=== PATIENT | female | born 1990 | race Two or more races ===

== ENCOUNTER 2020-02-24 19:46 | Emergency (ER) | payer BC ==
[~2020-02-24] VITALS: Ht 167.6 cm; Wt 60.8 kg
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
[2020-02-24] MEDS ORDERED: CYCLOBENZAPRINE 10 MG TABLET ONE (20:08)
[2020-02-24] MEDS ORDERED: KETOROLAC TROMETHAMINE INJ 60 MG/2 ML VIAL IM ONE (20:08)
[2020-02-24] MEDS: CYCLOBENZAPRINE 10 MG TABLET PO ONE (20:17)
[2020-02-24] MEDS: KETOROLAC TROMETHAMINE INJ 60 MG/2 ML VIAL IM ONE (20:17)
--- NOTE | 2020-02-24 20:18 | NUR ---
PT SIGNED WAIVER. CALLED RADIOLOGY FOR CT.
--- NOTE | 2020-02-24 20:21 | NUR ---
BROUGHT TO CT
--- NOTE | 2020-02-24 20:54 | NUR ---
AWAITING CT RESULTS.
[2020-02-24] MEDS ORDERED: DEXAMETHASONE SOD PHOSPHATE 10 MG/ML VIAL ONE (21:05)
[2020-02-24] MEDS: DEXAMETHASONE SOD PHOSPHATE 4 MG/ML VIAL IM ONE (21:11)
--- NOTE | 2020-02-24 21:12 | NUR ---
Patient discharged to home in stable condition. Written and verbal after care instructions given. Patient verbalizes understanding of instruction and RX. Pt picked up by boyfriend. Ambulated with steady gait.
[2020-02-24 21:13] VITALS: BP 119/72
== END 2020-02-24 21:14 | disposition home or self-care (01) ==
LOC: ER 19:46
DX: M51.26 Other intervertebral disc displacement, lumbar region (principal)
CPT/HCPCS: 72131; 96372 ×2; 99284; J1100; J1885

== ENCOUNTER 2021-11-02 20:27 | Inpatient (IN) | payer BC, OTHER ==
[~2021-11-02] VITALS: Ht 167.6 cm; Wt 61.2 kg
--- NOTE | 2021-11-02 20:34 | NUR ---
BIBS C/OFLU LIKE SYMPTOMS X1DAY. +BODY ACHES +FEVER +COUGH. PATIENT ALERT AND ORIENTED X3. AMBULATORY WITH NON LABORED BREATHING IN BED 06 [address]URDEN.
--- NOTE | 2021-11-02 20:35 | NUR ---
Note rosalia in EDM - 11/02/21 at 2043 by RANDY BIBEz C/BETO LIKE SYMPTOMS X1DAY. +BODY ACHES +FEVER +COUGH. PATIENT IS ALERT, ORIENTED X4. VITALS CHECKED. PLACED COMFORTABLY IN BED.
[2021-11-02] MEDS ORDERED: KETOROLAC TROMETHAMINE INJ 30 MG/ML VIAL IV ONE (21:00)
[2021-11-02] MEDS ORDERED: KETOROLAC TROMETHAMINE 15 MG/ML VIAL ONE (21:09)
--- NOTE | 2021-11-02 21:21 | NUR ---
IV CANNULA G20 INSERTED ON RIGHT AC. BLOOD DRAWN AND GIVEN TO VALVE AND REGULATOR REPAIRER
--- NOTE | 2021-11-02 21:21 | NUR ---
URINE SAMPLE ENDORSED TO TABLEAU DEVELOPER
--- NOTE | 2021-11-02 21:21 | NUR ---
COVID SWAB DONE AND SENT TO LAB
[2021-11-02 21:44] LABS: BILIRUBIN,URINE NEGATIVE (NEGATIVE); COLOR,URINE YELLOW (YELLOW); LEUKOCYTE ESTERASE ,URINE NEGATIVE (NEGATIVE); NITRITE, URINE NEGATIVE (NEGATIVE); PROTEIN,URINE NEGATIVE (NEGATIVE); UGLUCOSE NEGATIVE (NEGATIVE); UROBILINOGEN,URINE 0.2 EU/dL (0.2)
[2021-11-02 21:50] LABS: BASOPHILS % (AUTO) 0.2 % (0.0-2.0); EOSINOPHILS % (AUTO) 1.8 % (0.0-6.0); HEMATOCRIT 38 % (33-45); HEMOGLOBIN 12.7 g/dL (11.5-14.8); LYMPHOCYTES # (AUTO) 0.3 K/uL (0.8-4.8); LYMPHOCYTES % (AUTO) 2.2 % (20.0-44.0); MEAN CORPUSCULAR HGB CONC 33 g/dl (31.0-36.0); MEAN CORPUSCULAR VOLUME 90 fL (82-100); MONOCYTES # (AUTO) 0.5 K/uL (0.1-1.30); MONOCYTES % (AUTO) 3.8 % (2.0-12.0); NEUTROPHILS # (AUTO) 13.3 K/uL (1.8-8.9); PLATELET COUNT (AUTO) 214 K/uL (150-450); RED BLOOD CELL COUNT(AUTO) 4.26 MIL/uL (4.0-5.2); WHITE BLOOD COUNT (AUTO) 14.4 K/uL (4.3-11.0)
--- NOTE | 2021-11-02 21:50 | NUR ---
CXR DONE AT BEDSIDE
[2021-11-02] MEDS ORDERED: IOHEXOL-300 100 ML VIAL IV ONE (22:05)
[2021-11-02] MEDS ORDERED: IV NS 0.9% 250 ML IV ONE (22:06)
[2021-11-02] MEDS ORDERED: CT SWABBABLE VALVE TRANS SET 1 EA INFUS.SET MC ONE (22:06)
--- NOTE | 2021-11-02 22:07 | NUR ---
WHEELED TO RADIOLOGY DEPT FOR CT SCAN
[2021-11-02 22:12] LABS: ALBUMIN 3.8 g/dL (3.4-5.0); BILIRUBIN,TOTAL 0.7 mg/dL (0.2-1.0); CALCIUM, SERUM 8.8 mg/dL (8.5-10.1); CREATININE 0.7 mg/dL (0.6-1.3); TOTAL PROTEIN, SERUM 8.1 g/dL (6.4-8.2)
[2021-11-02 22:32] LABS: POTASSIUM 6.5 mmol/L (3.5-5.1)
--- NOTE | 2021-11-02 22:33 | NUR ---
POTASSIUM 6.5; MD ESCALONA AWARE
--- NOTE | 2021-11-02 22:35 | NUR ---
SPECIMEN FOR RAPID INFLUENZA SENT TO LAB
[2021-11-02] MEDS ORDERED: IV NS 0.9% 1,000 ML BAG IV ONE ×2 (23:00)
[2021-11-02] MEDS ORDERED: CALCIUM CHLORIDE 1,000 MG/10 ML DISP.SYRIN IV ONE (23:00)
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
--- NOTE | 2021-11-02 23:42 | NUR ---
RECEIVED REPORT FROM ARIA CRABTREE FOR [facility]
--- NOTE | 2021-11-02 23:42 | NUR ---
PT IS RESTING COMFORTABLY IN BED, PROVIDED HER WITH WARM BLANKET V/S STABLE. WILL CONTINUE TO MONITOR
[2021-11-02] MEDS ORDERED: CALCIUM CHLORIDE 1,000 MG/10 ML DISP.SYRIN ONE (23:55)
[2021-11-03] MEDS ORDERED: ACETAMINOPHEN 325 MG TABLET PO PRN
[2021-11-03] MEDS ORDERED: ONDANSETRON HCL/PF 4 MG/2 ML VIAL IVP PRN
[2021-11-03] MEDS ORDERED: MAGNESIUM HYDROXIDE 30 ML UDC PO PRN
[2021-11-03] MEDS ORDERED: ZOLPIDEM TARTRATE 5 MG TABLET PO PRN
[2021-11-03] MEDS ORDERED: Z GUARD REMEDY 4 OZ OINT TP PRN
[2021-11-03] MEDS ORDERED: MAG HYDROX/AL HYDROX/SIMETH 30 ML UDC PO PRN
[2021-11-03] MEDS ORDERED: ACETAMINOPHEN 325 MG TABLET ONE (00:02)
--- NOTE | 2021-11-03 00:14 | NUR ---
PT C/O BODY PAIN 4/10 P/S, PRN PAIN MEDS PROVIDED
[2021-11-03 01:46] LABS: CREATININE 0.8 mg/dL (0.6-1.3); POTASSIUM 3.6 mmol/L (3.5-5.1)
--- NOTE | 2021-11-03 01:54 | NUR ---
REPORT GIVEN TO HARPER CRABTREE FOR TAMIA
[2021-11-03] MEDS ORDERED: KETOROLAC TROMETHAMINE 15 MG/ML VIAL ONE (02:09)
--- NOTE | 2021-11-03 02:25 | NUR ---
COVID PCR DONE AND SENT TO LAB
[2021-11-03] MEDS ORDERED: KETOROLAC TROMETHAMINE INJ 30 MG/ML VIAL IV ONE (02:30)
--- NOTE | 2021-11-03 02:37 | NUR ---
PT STABLE FOR D/C. VSS STABLE. PT VERBALIZED UNDERSTANDING. PT AMBULATORY WITH STEADY GAIT AND DC HOME.
--- NOTE | 2021-11-03 02:38 | NUR ---
Patient discharged to home in stable condition. Written and verbal after care instructions given. Patient verbalizes understanding of instruction.
[2021-11-03 02:39] VITALS: BP 133/89
== END 2021-11-03 02:42 | disposition home or self-care (01) | DRG 866 ==
LOC: ER 20:35 → TELE 11-03 01:54 → UNDOADMIN 11-03 01:54 → TRANSITION 11-03 02:25
PROVIDERS: ADMIT Family Medicine; ATTEND Family Medicine
DX: B34.9 Viral infection, unspecified (principal); E87.1 Hypo-osmolality and hyponatremia; E87.5 Hyperkalemia; E86.1 Hypovolemia; Z20.822 Contact with and (suspected) exposure to COVID-19; D72.829 Elevated white blood cell count, unspecified; R74.01 Elevation of levels of liver transaminase levels; R74.8 Abnormal levels of other serum enzymes; M79.10 Myalgia, unspecified site
CPT/HCPCS: 36415; 71045-TC; 80048-TC; 80076-TC; 82550-TC; 82553; 83690-TC; 84703-TC; 85025-TC; 87081-TC; 87086-TC; C9803; G0378; J1885; J3490; J7050; Q9967; U0003